=== PATIENT | female | born 1955 | race Caucasian/White ===

== ENCOUNTER → 2017-02-17 | Outpatient (CLI) | payer MEDICARE, OTHER ==
[~2017-02-17] MED LIST: No Historical Meds
--- NOTE | 2017-02-17 14:19 | REP ---
Clinical: Shortness of breath . Comparison: 01/07/2017 . Technique: PA and lateral. Findings: The mediastinum and cardiac silhouette are normal. The lung neri are clear and without acute consolidation, effusion, or pneumothorax. The skeletal structures are intact and normal. Impression: 1. No acute cardiopulmonary process. Signed by Sammy Luong MD 02/17/2017 02:10 P
== END ==
LOC: M RAD 13:23
PROVIDERS: ATTEND Internal Medicine Cardiovascular Disease
DX: R06.02 Shortness of breath (principal)

== ENCOUNTER → 2017-03-04 | Outpatient (REF) | LOC: M LAB REF 10:00 | PROVIDERS: ATTEND Physician Assistant | DX: R06.02 Shortness of breath (principal) ==

== ENCOUNTER → 2017-07-28 | Outpatient (CLI) | payer OTHER | LOC: M RAD 08:19 | DX: Z12.31 Encounter for screening mammogram for malignant neoplasm of breast (principal) | CPT/HCPCS: 77067 ==

== ENCOUNTER → 2017-10-10 | Outpatient (CLI) | payer OTHER ==
[~2017-10-10] MED LIST changes: +METHACHOLINE KIT (J7674) INH; -No Historical Meds
== END ==
LOC: M CARPUL 07:06
DX: R06.02 Shortness of breath (principal)
CPT/HCPCS: J7674